=== PATIENT | male | born 1970 | race Caucasian/White ===

== ENCOUNTER 2019-09-03 09:58 | Day surgery (SDC) | payer BC ==
[2019-09-03] MEDS ORDERED: Propofol 200 MG/20 ML SDV IV ONE (09:59)
[2019-09-03] MEDS ORDERED: Midazolam 1 MG/ML 2 ML SDV IV ONE (09:59)
[2019-09-03] MEDS ORDERED: Lactated Ringers 1,000 ML IV SCH (10:00)
[2019-09-03] MEDS ORDERED: Sodium Chloride 0.9% 10 ML Syringe FLUSH PRN (10:00)
[2019-09-03] MEDS ORDERED: Propofol 200 MG/20 ML SDV ONE (10:43)
[2019-09-03] MEDS ORDERED: Midazolam 1 MG/ML 2 ML SDV ONE (10:43)
--- NOTE | 2019-09-03 11:41 | PCM.OPNOTE ---
- General Post-Op/Procedure Note Date of Surgery/Procedure: 09/03/19 Operative Procedure(s): Rectal bleeding. Colonoscopy. Findings: Moderately enlarged hemorrhoids noted at the anorectal junction. Pre Op Diagnosis: Rectal bleeding. Post-Op Diagnosis: Moderately enlarged hemorrhoids noted at the anorectal junction. Anesthesia Technique: MAC Primary Surgeon: Estrellita Rice Complications: None Condition: Good Free Text/Narrative:: INFORMED CONSENT: Patient is here today for elective colonoscopy. All aspects of this procedure have been discussed with the patient. All possible complications also, including possibility of perforation, infection, pain, bleeding and unknown complications. In the event of perforation patient may need to have abdominal exploration, colon resection, colostomy and even was discussed. Anesthetic complications were handled by anesthesia department. The patient understands fully well. Patient did not have any further questions for me at the end of my interview. The patient wishes for me to proceed. PREOPERATIVE DIAGNOSIS/INDICATIONS: [] POSTOPERATIVE DIAGNOSIS: [] INSTRUMENT USED: Olympus videocolonoscope. ASA CLASSIFICATION: [] ANESTHESIA: Continuous EKG, oximetry and intermittent blood pressure and respiratory monitoring were performed throughout the procedure. IV Versed and Fentanyl were administered. PROCEDURE PERFORMED: Colonoscopy POSITIONS OF PATIENT: Left lateral. RECTUM: Moderately enlarged internal and external hemorrhoids noted.. SIGMOID COLON: Normal. DESCENDING COLON: Normal. SPLENIC FLEXURE: Normal. TRANSVERSE COLON: Normal. HEPATIC FLEXURE: Normal. ASCENDING COLON: Normal. CECUM: Normal. ILEOCECAL VALVE: Normal. BIOPSY: None. TOLERANCE: Excellent. COMPLICATIONS: None.
== END 2019-09-03 13:30 | disposition home or self-care (01) ==
LOC: KA.SDS 09:58
PROVIDERS: ATTEND Family Medicine
DX: K64.8 Other hemorrhoids (principal); K64.4 Residual hemorrhoidal skin tags; F17.210 Nicotine dependence, cigarettes, uncomplicated; Z79.82 Long term (current) use of aspirin
CPT/HCPCS: J2250; J2704; J7120

== ENCOUNTER 2020-10-23 23:46 | Observation (INO) | payer BC, OTHER ==
[2020-10-23] MEDS ORDERED: Aspirin 81 MG Tab.Chew PO ONE (23:59)
[2020-10-24] MEDS ORDERED: Sodium Chloride 0.9% 10 ML Syringe FLUSH PRN (00:01)
--- NOTE | 2020-10-24 00:38 | EDM.PDOC ---
ED HPI GENERAL MEDICAL PROBLEM - General Chief Complaint: General Stated Complaint: pain, cough, chest tightness Time Seen by Provider: 10/23/20 23:55 Source of Information: Reports: Patient History Limitations: Reports: No Limitations - History of Present Illness INITIAL COMMENTS - FREE TEXT/NARRATIVE: 50-year-old male presents to the emergency room with complaints of chest pr essure. He began experiencing some chest pressure shortly after taking pain medication this evening. The onset of his symptoms occurred about 1030. He denied any radiation of his pain to his jaw or back, arm. No numbness tingling complaints. He did report feeling sweaty. He also reports having a cough. They did call the EMS and was brought here for further evaluation. He was given 1 nitro sublingual in route and reports that his chest pressure resolved. He has a history of atrial fibrillation diagnosed in May. His rate has been well controlled on Diltiazem 180 mg daily. Had a recent follow-up with cardiology for this on 10/17/2020. He is scheduled for 1 year follow-up for repeat EKG. Patient's had recent hemorrhoid surgery morning. His surgery was uneventful. Medical history significant for half-pack smoker 30+ years. He recently was prescribed Chantix and is going to try to quit smoking. Family history is significant for coronary artery disease and NM. His brother had a recent heart attack at the age of 42. Mother also has had a history of an NM and coronary artery disease COPD. Onset: Today Onset Date: 10/23/20 Onset Time: 22:30 Duration: Minutes:, Resolved Prior to Arrival Location: Reports: Chest Quality: Reports: Pressure Severity: Moderate Improves with: Reports: Medication (nitro) Worsens with: Reports: None Associated Symptoms: Reports: Cough, Diaphoresis. 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 Rectal Pain Score (Numeric/FACES): 9 Left Upper Chest Pain Score (Numeric/FACES): 3 - Related Data Allergies Allergy/AdvReac Type Severity Reaction Status Date / Time procaine [From Novocain] Allergy Tachycardia Verified 10/24/20 00:22 Home Meds: Home Meds Acetaminophen 325 mg PO ASDIRECTED PRN 08/31/19 [History] Docusate Sodium [Colace] 100 mg PO BID 10/24/20 [History] Multivit-Min/FA/Lycopen/Lutein [Centrum Silver Men Tablet] 1 each PO DAILY 10/24/20 [History] Varenicline Tartrate [Chantix] 0.5 mg PO BID 10/24/20 [History] Vitamin B Complex [B Complex] 1 each PO DAILY 10/24/20 [History] dilTIAZem HCL [Diltiazem ER] 180 mg PO DAILY 10/24/20 [History] oxyCODONE 5 mg PO Q4H PRN 10/24/20 [History] Past Medical History HEENT History: Reports: Impaired Vision Gastrointestinal History: Reports: Hemorrhoids Musculoskeletal History: Reports: Back Pain, Chronic - Infectious Disease History Infectious Disease History: Reports: None - Past Surgical History HEENT Surgical History: Reports: Other (See Below) Other HEENT Surgeries/Procedures: PUNCTURED EAR DRUM REPAIR GI Surgical History: Reports: Appendectomy, Hernia, Abdominal Social & Family History - Family History Family Medical History: No Pertinent Family History ED ROS GENERAL - Review of Systems Review Of Systems: See Below Constitutional: Reports: No Symptoms HEENT: Reports: No Symptoms Respiratory: Reports: Cough. Denies: Shortness of Breath, Wheezing Cardiovascular: Reports: Chest Pain (reports pressure). Denies: Blood Pressure Problem, Dyspnea on Exertion, Lightheadedness, Orthopnea, Palpitations Endocrine: Reports: No Symptoms GI/Abdominal: Reports: Bloody Stool (recent hemorrhoid surgery ) : Reports: No Symptoms Musculoskeletal: Reports: No Symptoms Skin: Reports: No Symptoms Neurological: Reports: No Symptoms Psychiatric: Reports: No Symptoms Hematologic/Lymphatic: Reports: No Symptoms Immunologic: Reports: No Symptoms ED EXAM, GENERAL - Physical Exam Exam: See Below Exam Limited By: No Limitations General Appearance: Alert, No Apparent Distress, Thin Eye Exam: Bilateral Eye: EOMI Ears: Hearing Grossly Normal Nose: Normal Inspection, Normal Mucosa, No Blood Throat/Mouth: Normal Inspection, Normal Lips, Normal Voice, No Airway Compromise Head: Atraumatic, Normocephalic Neck: Normal Inspection, Supple, Non-Tender, Full Range of Motion. No: Carotid Bruit, Lymphadenopathy (L), Lymphadenopathy (R), Tender Lateral, Tender Midline, Thyromegaly Respiratory/Chest: No Respiratory Distress, Lungs Clear, Normal Breath Sounds, No Accessory Muscle Use, Chest Non-Tender Cardiovascular: Normal Peripheral Pulses, Regular Rate, Rhythm, No Murmur Peripheral Pulses: 2+: Carotid (L), Carotid (R), Radial (L), Radial (R), Dorsalis Pedis (L), Dorsalis Pedis (R) GI/Abdominal: Normal Bowel Sounds, Soft, Non-Tender, No Organomegaly, No Distention, No Abnormal Bruit, No Mass Rectal (Males) Exam: Deferred (Surgery, hemorrhoids ) Back Exam: Normal Inspection, Full Range of Motion Extremities: Normal Inspection, Normal Range of Motion, Non-Tender, No Pedal Edema, Normal Capillary Refill Neurological: Alert, Oriented, CN II-XII Intact, Normal Cognition, No Motor/Sensory Deficits Psychiatric: Normal Affect, Normal Mood Skin Exam: Warm, Dry, Intact, Normal Color, No Rash Lymphatic: No Adenopathy #1 Interpretation EKG Date: 10/24/20 Time: 00:06 Rhythm: NSR Rate (Beats/Min): 92 [place]: RAD-Right [place] Deviation P-Wave: Present QRS: Normal ST-T: Normal QT: Normal Comparison: Change From Previous EKG EKG Interpretation Comments: Normal sinus rhythm Rightward axis Borderline ECG Course - Vital Signs Last Recorded V/S: Last Vital Signs Temp 99.1 F 10/24/20 00:08 Pulse 92 10/24/20 00:08 Resp 9 L 10/24/20 00:08 BP 132/79 10/24/20 00:08 Pulse Ox 96 10/24/20 00:08 - Orders/Labs/Meds Orders: Active Orders 24 hr Category Date Time Status Patient Status [ADT] Routine ADT 10/24/20 01:07 Active EKG Documentation Completion [RC] ASDIRECTED Care 10/23/20 23:59 Active Height and Weight [RC] UPON Care 10/24/20 01:06 Active Intake and Output [RC] QSHIFT Care 10/24/20 01:08 Active Oxygen Therapy [RC] PRN Care 10/24/20 01:08 Active Peripheral IV Care [RC] . DIRECTED Care 10/24/20 00:01 Active Pulse Oximetry [RC] PRN Care 10/24/20 01:08 Active Up With Assistance [RC] ASDIRECTED Care 10/24/20 01:06 Active Vital Signs [RC] Q4H Care 10/24/20 01:07 Active Regular Diet [DIET] Diet 10/24/20 Breakfast Active CXR [Chest 1V Frontal] [CR] Stat Exams 10/24/20 00:30 Ordered CORONAVIRUS COVID-19 RAPID [MOLEC] Stat Lab 10/24/20 01:10 Ordered TROPONIN I [CHEM] AM Lab 10/24/20 05:11 Ordered TROPONIN I [CHEM] Timed Lab 10/24/20 15:00 Ordered Acetaminophen [TylenoL] Med 10/24/20 01:06 Active 650 mg PO Q4H PRN Docusate Sodium [Colace] Med 10/24/20 09:00 Active 100 mg PO BID Docusate Sodium [Colace] Med 10/24/20 01:06 Active 200 mg PO DAILY PRN Multivit-Min/FA/Lycopen/Lutein [Centrum Silver Men Med 10/24/20 09:00 Active Tablet] 1 each PO DAILY Sodium Chloride 0.9% [Saline Flush] Med 10/24/20 00:01 Active 10 ml FLUSH Q8HR PRN Varenicline Tartrate [Chantix] Med 10/24/20 09:00 Active 0.5 mg PO BID Vitamin B Complex Med 10/24/20 09:00 Active 1 each PO DAILY dilTIAZem HCL [Diltiazem 24Hr ER] Med 10/24/20 09:00 Active 180 mg PO DAILY oxyCODONE Med 10/24/20 01:12 Active 5 mg PO Q4H PRN Peripheral IV Insertion Adult [OM.PC] Routine Oth 10/24/20 00:01 Ordered EKG 12 Lead [EK] Stat Ther 10/23/20 23:59 Ordered Labs: Laboratory Tests 10/24/20 10/24/20 Range/Units 00:10 00:10 WBC 9.43 (5.00-10.00) 10^3/uL RBC 4.34 L (4.50-6.00) 10^6/uL Hgb 13.8 (13.0-17.0) g/dL Hct 39.8 L (40.0-52.0) % MCV 91.7 (82.0-92.0) fL MCH 31.8 H (27.0-31.0) pg MCHC 34.7 (32.0-36.0) g/dL RDW 11.8 (11.5-14.5) % Plt Count 203 (150-400) 10^3/uL MPV 10.4 (7.4-10.4) fL Immature Gran % (Auto) 0.1 (0.0-5.0) % Neut % (Auto) 74.9 H (50.0-70.0) % Lymph % (Auto) 19.0 L (20.0-40.0) % [place] % (Auto) 5.3 (2.0-8.0) % Eos % (Auto) 0.5 L (1.0-3.0) % Baso % (Auto) 0.2 (0.0-1.0) % Neut # (Auto) 7.06 H (2.50-7.00) 10^3/uL Lymph # (Auto) 1.79 (1.00-4.00) 10^3/uL [place] # (Auto) 0.50 (0.10-0.80) 10^3/uL Eos # (Auto) 0.05 L (0.10-0.30) 10^3/uL Baso # (Auto) 0.02 (0.00-0.10) 10^3/uL Immature Gran # (Auto) 0.01 (0.00-0.50) 10^3/uL Sodium 137 (136-145) mmol/L Potassium 4.1 (3.5-5.1) mmol/L Chloride 102 (98-107) mmol/L Carbon Dioxide 26.2 (21.0-32.0) mmol/L Anion Gap 12.9 (5-15) mmol/L BUN 15 (7-18) mg/dL Creatinine 0.86 (0.51-1.17) mg/dL Est Cr Clr Drug Dosing TNP Estimated GFR (MDRD) > 60 mL/min Glucose 122 (70-140) mg/dL Calcium 8.7 (8.7-10.3) mg/dL Troponin I < 0.017 (0.000-0.056) ng/mL - Radiology Interpretation Free Text/Narrative:: CXR 1 view Portable Findings: Heart size is normal. There is no consolidation. No pleural effusions are seen. Impression: No acute abnormalities - Re-Assessments/Exams Free Text/Narrative Re-Assessment/Exam: 10/24/20 00:41 Patient was given 324 mg aspirin chewable upon arrival an EKG. Patient reports that his chest pressure was resolved with 1 nitro provided by the EMS in route to the emergency room. Departure - Departure Time of Disposition: 01:15 Disposition: Refer to Observation Condition: Good Clinical Impression: Chest pressure, Paroxysmal atrial fibrillation, Tobacco abuse, History of hemorrhoidectomy - Discharge Information Referrals: Annemarie Das, VENDING MACHINE ATTENDANT [Primary Care Provider] - Forms: ED Department Discharge Sepsis Event Note (ED) - Focused Exam Vital Signs: Vital Signs Temp Pulse Resp BP Pulse Ox 10/24/20 00:08 99.1 F 92 9 L 132/79 96 - My Orders Last 24 Hours: My Active Orders 10/23/20 23:59 EKG Documentation Completion [RC] ASDIRECTED EKG 12 Lead [EK] Stat 10/24/20 00:01 Peripheral IV Care [RC] . DIRECTED Sodium Chloride 0.9% [Saline Flush] 10 ml FLUSH Q8HR PRN Peripheral IV Insertion Adult [OM.PC] Routine 10/24/20 00:30 CXR [Chest 1V Frontal] [CR] Stat 10/24/20 01:06 Height and Weight [RC] UPON Up With Assistance [RC] ASDIRECTED Acetaminophen [TylenoL] 650 mg PO Q4H PRN Docusate Sodium [Colace] 200 mg PO DAILY PRN 10/24/20 01:07 Patient Status [ADT] Routine Vital Signs [RC] Q4H 10/24/20 01:08 Intake and Output [RC] QSHIFT Oxygen Therapy [RC] PRN Pulse Oximetry [RC] PRN 10/24/20 01:10 CORONAVIRUS COVID-19 RAPID [MOLEC] Stat 10/24/20 01:12 oxyCODONE 5 mg PO Q4H PRN 10/24/20 05:11 TROPONIN I [CHEM] AM 10/24/20 Breakfast Regular Diet [DIET] 10/24/20 09:00 Docusate Sodium [Colace] 100 mg PO BID Multivit-Min/FA/Lycopen/Lutein [Centrum Silver Men Tablet] 1 each PO DAILY Varenicline Tartrate [Chantix] 0.5 mg PO BID Vitamin B Complex 1 each PO DAILY dilTIAZem HCL [Diltiazem 24Hr ER] 180 mg PO DAILY 10/24/20 15:00 TROPONIN I [CHEM] Timed - Assessment/Plan Last 24 Hours: My Active Orders 10/23/20 23:59 EKG Documentation Completion [RC] ASDIRECTED EKG 12 Lead [EK] Stat 10/24/20 00:01 Peripheral IV Care [RC] . DIRECTED Sodium Chloride 0.9% [Saline Flush] 10 ml FLUSH Q8HR PRN Peripheral IV Insertion Adult [OM.PC] Routine 10/24/20 00:30 CXR [Chest 1V Frontal] [CR] Stat 10/24/20 01:06 Height and Weight [RC] UPON Up With Assistance [RC] ASDIRECTED Acetaminophen [TylenoL] 650 mg PO Q4H PRN Docusate Sodium [Colace] 200 mg PO DAILY PRN 10/24/20 01:07 Patient Status [ADT] Routine Vital Signs [RC] Q4H 10/24/20 01:08 Intake and Output [RC] QSHIFT Oxygen Therapy [RC] PRN Pulse Oximetry [RC] PRN 10/24/20 01:10 CORONAVIRUS COVID-19 RAPID [MOLEC] Stat 10/24/20 01:12 oxyCODONE 5 mg PO Q4H PRN 10/24/20 05:11 TROPONIN I [CHEM] AM 10/24/20 Breakfast Regular Diet [DIET] 10/24/20 09:00 Docusate Sodium [Colace] 100 mg PO BID Multivit-Min/FA/Lycopen/Lutein [Centrum Silver Men Tablet] 1 each PO DAILY Varenicline Tartrate [Chantix] 0.5 mg PO BID Vitamin B Complex 1 each PO DAILY dilTIAZem HCL [Diltiazem 24Hr ER] 180 mg PO DAILY 10/24/20 15:00 TROPONIN I [CHEM] Timed Assessment:: 1. Chest pressure, resolved with 1 sublingual nitro 2. Paroxysmal atrial fibrillation, rate controlled on Diltiazem 180 mg daily 3. Hemorrhoids status post hemorrhoidectomy 4. Tobacco abuse Plan: 1. Dean's lab work and EKG look unremarkable. He does have a strong family history of coronary artery disease. Recommend that we repeat his troponin in 2 hours and a.m. lab draw at [address] him in telemetry and observational status. I discussed this with the [place] provider gas combustion engineer.
[2020-10-24 00:40] LABS: ANION GAP 12.9 mmol/L (5-15); CHLORIDE,CL 102 mmol/L (98-107); SODIUM,NA 137 mmol/L (136-145)
[2020-10-24] MEDS ORDERED: Docusate Sodium 100 MG Cap PO PRN (01:06)
[2020-10-24] MEDS ORDERED: oxyCODONE 5 MG Tab PO PRN (01:12)
[2020-10-24] MEDS ORDERED: Nitroglycerin 0.4 MG Tab.SL SL PRN (02:00)
[2020-10-24] MEDS ORDERED: Atropine 0.1 MG/ML 10 ML Syringe IVPUSH PRN (02:00)
[2020-10-24] MEDS ORDERED: Lidocaine 2% 100 MG/5 ML Syringe IVPUSH PRN (02:00)
[2020-10-24] MEDS ORDERED: EPINEPHrine 1:10,000 1 MG/10 ML Syringe IVPUSH PRN (02:00)
[2020-10-24] MEDS ORDERED: Acetaminophen 325 MG Tab PO PRN (02:25)
[2020-10-24] MEDS ORDERED: DOCUSATE SODIUM 100 MG PO PRN (02:42)
[2020-10-24] MEDS ORDERED: OXYCODONE 5 MG PO PRN (02:45)
--- NOTE | 2020-10-24 08:01 | CR ---
[id number] RAD/RAD Chest Portable EXAM: RAD Chest Portable INDICATION: CHEST PRESSURE COMPARISON: None. DISCUSSION: Cardiomediastinal silhouette is normal in size and contour. No infiltrate, effusion, pneumothorax, or edema. IMPRESSION: No significant cardiopulmonary abnormality. Hernandez Haynes DO 10/24/20 0800 Thank you for allowing us to participate in the care of your patient.
[2020-10-24] MEDS: DOCUSATE SODIUM 100 MG PO SCH ×2 (08:39→20:12)
[2020-10-24] MEDS: Vitamin B Complex Tab PO SCH (08:40)
[2020-10-24] MEDS: [UNRECOGNIZED DRUG - OTHER] PO SCH (08:45)
[2020-10-24] MEDS: VARENICLINE TARTRATE PO SCH ×2 (08:45→20:14)
[2020-10-24] MEDS ORDERED: Sodium Chloride 0.9% 1,000 ML IV ONE (09:30)
[2020-10-24] MEDS ORDERED: Ondansetron 4 MG/2 ML SDV IVPUSH PRN (09:31)
[2020-10-24] MEDS ORDERED: Ketorolac 30 MG/ML SDV IVPUSH ONE (10:00)
--- NOTE | 2020-10-24 10:53 | PCM.HP.2 ---
H&P History of Present Illness - General Date of Service: 10/24/20 Admit Problem/Dx: Admission Diagnosis/Problem Admission Diagnosis/Problem Atypical chest pain Source of Information: Patient, Old Records, RN Rectal Pain Score (Numeric/FACES): 5 Left Upper Chest Pain Score (Numeric/FACES): 3 - Related Data Allergies/Adverse Reactions: Allergies Allergy/AdvReac Type Severity Reaction Status Date / Time procaine [From Novocain] Allergy Tachycardia Verified 10/24/20 00:22 Home Medications: Home Meds Docusate Sodium [Colace] 100 mg PO BID 10/24/20 [History] Multivit-Min/FA/Lycopen/Lutein [Centrum Silver Men Tablet] 1 each PO DAILY 10/24/20 [History] Varenicline Tartrate [Chantix] 0.5 mg PO BID 10/24/20 [History] Vitamin B Complex [B Complex] 1 each PO DAILY 10/24/20 [History] dilTIAZem HCL [Diltiazem 24Hr ER] 180 mg PO DAILY 10/24/20 [History] Acetaminophen 650 mg PO Q4HR PRN #0 10/25/20 [Rx] Past Medical History HEENT History: Reports: Impaired Vision Other HEENT History: wears glasses for reading Cardiovascular History: Reports: Afib Other Cardiovascular History: mom and brother have both had heart attacks Gastrointestinal History: Reports: Hemorrhoids Other Gastrointestinal History: hemorrhoidectomy: 10/23/20 Musculoskeletal History: Reports: Back Pain, Chronic - Infectious Disease History Infectious Disease History: Reports: None, Chicken Pox - Past Surgical History HEENT Surgical History: Reports: Other (See Below) Other HEENT Surgeries/Procedures: PUNCTURED EAR DRUM REPAIR GI Surgical History: Reports: Appendectomy, Hernia, Abdominal Social & Family History - Family History Family Medical History: No Pertinent Family History - Tobacco Use Tobacco Use Status *Q: Current Every Day Tobacco User Years of Tobacco use: 30 Packs/Tins Daily: 1 Tobacco Use Comment: Pt already has smoking cessation information - Caffeine Use Caffeine Use: Reports: Coffee Other Caffeine Use: 4 cups coffee/day - Recreational Drug Use Recreational Drug Use: No H&P Review of Systems - Review of Systems: Review Of Systems: See Below General: Reports: Diaphoresis HEENT: Reports: Other (Lightheadedness after taking oxycodone) Pulmonary: Reports: No Symptoms Cardiovascular: Reports: Lightheadedness. Denies: Orthopnea, PND, Edema, Syncope, Blood Pressure Problem Gastrointestinal: Reports: Nausea. Denies: Abdominal Pain, Constipation, Vomiting Genitourinary: Reports: No Symptoms Musculoskeletal: Reports: No Symptoms Skin: Reports: No Symptoms Neurological: Reports: Dizziness Hematologic/Lymphatic: Reports: No Symptoms Immunologic: Reports: No Symptoms Exam - Exam Exam: See Below - Vital Signs Vital Signs: Last Vital Signs Temp 97.6 F 10/24/20 06:49 Pulse 93 10/24/20 06:49 Resp 20 10/24/20 06:49 BP 101/67 10/24/20 06:49 Pulse Ox 97 10/24/20 06:49 Weight: 175 lb 8 oz - Exam Quality Assessment: No: Supplemental Oxygen General: Alert, Oriented, Mild Distress HEENT: Mucosa Moist & [place]. No: Glasses Neck: Supple Lungs: Clear to Auscultation, Normal Respiratory Effort Cardiovascular: Regular Rate, Regular Rhythm GI/Abdominal Exam: Soft. No: Distended, Rigid, Rebound Back Exam: No: CVA Tenderness (L), CVA Tenderness (R) Extremities: No Pedal Edema Peripheral Pulses: 1+: Radial (L), Radial (R) Skin: Moist, Other (Slight diaphoretic) Neuro Extensive - Mental Status: Alert, Oriented x3 Psychiatric: Alert, Anxious - Patient Data Lab Results Last 24 hrs: Laboratory Results - last 24 hr 10/24/20 10/24/20 10/24/20 Range/Units 00:10 00:10 01:10 WBC 9.43 (5.00-10.00) 10^3/uL RBC 4.34 L (4.50-6.00) 10^6/uL Hgb 13.8 (13.0-17.0) g/dL Hct 39.8 L (40.0-52.0) % MCV 91.7 (82.0-92.0) fL MCH 31.8 H (27.0-31.0) pg MCHC 34.7 (32.0-36.0) g/dL RDW 11.8 (11.5-14.5) % Plt Count 203 (150-400) 10^3/uL MPV 10.4 (7.4-10.4) fL Immature Gran % (Auto) 0.1 (0.0-5.0) % Neut % (Auto) 74.9 H (50.0-70.0) % Lymph % (Auto) 19.0 L (20.0-40.0) % [place] % (Auto) 5.3 (2.0-8.0) % Eos % (Auto) 0.5 L (1.0-3.0) % Baso % (Auto) 0.2 (0.0-1.0) % Neut # (Auto) 7.06 H (2.50-7.00) 10^3/uL Lymph # (Auto) 1.79 (1.00-4.00) 10^3/uL [place] # (Auto) 0.50 (0.10-0.80) 10^3/uL Eos # (Auto) 0.05 L (0.10-0.30) 10^3/uL Baso # (Auto) 0.02 (0.00-0.10) 10^3/uL Immature Gran # (Auto) 0.01 (0.00-0.50) 10^3/uL Sodium 137 (136-145) mmol/L Potassium 4.1 (3.5-5.1) mmol/L Chloride 102 (98-107) mmol/L Carbon Dioxide 26.2 (21.0-32.0) mmol/L Anion Gap 12.9 (5-15) mmol/L BUN 15 (7-18) mg/dL Creatinine 0.86 (0.51-1.17) mg/dL Est Cr Clr Drug Dosing TNP Estimated GFR (MDRD) > 60 mL/min Glucose 122 (70-140) mg/dL Calcium 8.7 (8.7-10.3) mg/dL Troponin I < 0.017 (0.000-0.056) ng/mL SARS CoV-2 RNA Rapid MARIELENA Negative (NEGATIVE) 10/24/20 10/24/20 Range/Units 02:00 07:10 WBC (5.00-10.00) 10^3/uL RBC (4.50-6.00) 10^6/uL Hgb (13.0-17.0) g/dL Hct (40.0-52.0) % MCV (82.0-92.0) fL MCH (27.0-31.0) pg MCHC (32.0-36.0) g/dL RDW (11.5-14.5) % Plt Count (150-400) 10^3/uL MPV (7.4-10.4) fL Immature Gran % (Auto) (0.0-5.0) % Neut % (Auto) (50.0-70.0) % Lymph % (Auto) (20.0-40.0) % [place] % (Auto) (2.0-8.0) % Eos % (Auto) (1.0-3.0) % Baso % (Auto) (0.0-1.0) % Neut # (Auto) (2.50-7.00) 10^3/uL Lymph # (Auto) (1.00-4.00) 10^3/uL [place] # (Auto) (0.10-0.80) 10^3/uL Eos # (Auto) (0.10-0.30) 10^3/uL Baso # (Auto) (0.00-0.10) 10^3/uL Immature Gran # (Auto) (0.00-0.50) 10^3/uL Sodium (136-145) mmol/L Potassium (3.5-5.1) mmol/L Chloride (98-107) mmol/L Carbon Dioxide (21.0-32.0) mmol/L Anion Gap (5-15) mmol/L BUN (7-18) mg/dL Creatinine (0.51-1.17) mg/dL Est Cr Clr Drug Dosing Estimated GFR (MDRD) mL/min Glucose (70-140) mg/dL Calcium (8.7-10.3) mg/dL Troponin I < 0.017 < 0.017 (0.000-0.056) ng/mL SARS CoV-2 RNA Rapid MARIELENA (NEGATIVE) Result Diagrams: 10/24/20 00:10 10/24/20 00:10 Sepsis Event Note - Evaluation Sepsis Screening Result: No Definite Risk - Focused Exam Vital Signs: Vital Signs Temp Pulse Pulse Resp BP Pulse Ox Pulse Ox 10/24/20 06:49 97.6 F 93 20 101/67 97 10/24/20 02:50 98.3 F 81 16 111/65 96 10/24/20 01:30 83 17 128/68 03/12/21 01:15 82 9 L 115/68 10/24/20 01:08 96 96 10/24/20 01:00 79 11 L 116/62 10/24/20 00:45 85 15 106/71 10/24/20 00:30 82 11 L 114/70 10/24/20 00:15 87 10 L 116/72 96 10/24/20 00:08 99.1 F 92 9 L 132/79 96 Problem List Initiated/Reviewed/Updated: Yes Orders Last 24hrs: Active Orders 24 hr Category Date Time Status Patient Status [ADT] Routine ADT 10/24/20 01:07 Active Intake and Output [RC] 1400,2200,0600 Care 10/24/20 01:08 Active Up With Assistance [RC] ASDIRECTED Care 10/24/20 01:06 Active Vital Signs [RC] 0300,0700,1100,1500,1900,2300 Care 10/24/20 01:07 Active Regular Diet [DIET] Diet 10/24/20 Breakfast Active Acetaminophen [TylenoL] Med 10/24/20 02:25 Active 325 mg PO ASDIRECTED PRN Acetaminophen [TylenoL] Med 10/24/20 01:06 Active 650 mg PO Q4H PRN Atropine [Atropine 0.1 MG/ML] Med 10/24/20 02:00 Active See Dose Instructions IVPUSH ASDIRECTED PRN Docusate Sodium [Colace] Med 10/24/20 09:00 Active 100 mg PO BID Docusate Sodium [Colace] Med 10/24/20 02:42 Active 200 mg PO DAILY PRN EPINEPHrine [EPINEPHrine 1:10,000] Med 10/24/20 02:00 Active 1 mg IVPUSH ASDIRECTED PRN Lidocaine 2% [Xylocaine 2%] Med 10/24/20 02:00 Active See Dose Instructions IVPUSH ASDIRECTED PRN Multivit-Min/FA/Lycopen/Lutein [Centrum Silver Men Med 10/24/20 09:00 Active Tablet] 1 each PO DAILY Nitroglycerin [Nitrostat] Med 10/24/20 02:00 Active 0.4 mg SL ASDIRECTED PRN Ondansetron [Zofran] Med 10/24/20 09:31 Active 4 mg IVPUSH Q6H PRN Sodium Chloride 0.9% [Saline Flush] Med 10/24/20 00:01 Active 10 ml FLUSH Q8HR PRN Varenicline Tartrate [Chantix] Med 10/24/20 09:00 Active 0.5 mg PO BID Vitamin B Complex Med 10/24/20 09:00 Active 1 each PO DAILY dilTIAZem HCL [Diltiazem 24Hr ER] Med 10/24/20 09:00 Active 180 mg PO DAILY oxyCODONE Med 10/24/20 02:45 Active 5 mg PO Q4H PRN Peripheral IV Insertion Adult [OM.PC] Routine Oth 10/24/20 00:01 Ordered EKG 12 Lead [EK] Stat Ther 10/23/20 23:59 Ordered Assessment/Plan Comment:: History of present illness Mr Avila 50-year-old gentleman that was 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 He presented to the ED complaining of nonradiating left-sided anterior chest pressure with someone accompany diaphoresis shortly after he took oxycodone. Upon ED arrival he was given 1 nitroglycerin in route and reports immediately chest pressure r esolution. PMHx significant for atrial fibrillation that was diagnosed May 2020 which she takes aspirin and diltiazem. Patient underwent hemorrhoid surgery under spinal anesthesia yesterday October 23 in [facility], simply get an oxycodone for pain control. PMX significant for a [id number] history smoker, currently attention to quit with recent Chantix, early heart disease in family His brother had a recent heart attack at the age of 42. Mother also has had a history of an IL and coronary artery disease and COPD. ED course/Pertinent ED workup/findings EKG, normal sinus rhythm with right axis deviation Chest x-ray, no acute process Initial troponin negative Electrolytes normal Primary hospital problems --Ruled out IL --Possible limited flow disease/CAD component --Dehydration --Recent hemorrhoid surgery, requiring improved pain management --Tobacco dependency, currently on Chantix, active phase of quitting Disposition/overall plan --Will continue observation as patient is is not quite optimal for discharge due to the need for improved pain management, changing medications to avoid side effects, IV fluid hydration. --DC oxycodone, due to patient intolerance --Changed to hydrocodone --IV fluid bolus 1000 mL --IV Zofran --Toradol 30 mg IV 1 now --Movantik, encourage oral hydration Possible discharge this p.m. if in improvement in nausea, pain control, no dizziness and hydration status is improved. - Mortality Measure Prognosis:: Good
[2020-10-24] MEDS: Acetaminophen 325 MG Tab PO PRN ×2 (16:02→21:53)
[2020-10-24] MEDS: Naloxegol Oxalate 25 MG Tab PO SCH (20:12)
[2020-10-25] MEDS: Acetaminophen 325 MG Tab PO PRN ×2 (02:38→08:26)
[2020-10-25] MEDS: DOCUSATE SODIUM 100 MG PO SCH (08:14)
[2020-10-25] MEDS: Naloxegol Oxalate 25 MG Tab PO SCH (08:15)
[2020-10-25] MEDS: Vitamin B Complex Tab PO SCH (08:15)
[2020-10-25] MEDS: [UNRECOGNIZED DRUG - OTHER] PO SCH (08:16)
[2020-10-25] MEDS: VARENICLINE TARTRATE PO SCH (08:16)
--- NOTE | 2020-10-25 10:25 | PCM.DCSUM1 ---
Discharge Summary - Hospital Course Free Text/Narrative:: Date of admission: 10/24/20 Date of discharge: 10/25/20 Admission diagnoses: # Chest pain # Dizziness # Hemorrhoids s/p hemorrhoidectomy 10/23/20 # Narcotic use postoperatively # Tobacco dependence, in early remission # Family history of premature coronary artery disease Discharge diagnoses: # Chest pain, resolved # Dizziness, resolved # Hemorrhoids s/p hemorrhoidectomy 10/23/20 # Narcotic use postoperatively # Tobacco dependence, in early remission # Family history of premature coronary artery disease Consultations: None Procedures: None Hospital course: Mr. Avila is a 50yoM with a history of paroxysmal atrial fibrillation and hemorrhoidectomy on the day prior to admission who presented to the [facility] ED just after midnight on 10/24/20 with [facility] complaint of chest pain. Onset of the chest pain occurred after he took oxycodone. Upon arrival in the ED, he was given nitroglycerin SL with resolution. EKG was without any acute changes and CXR without any abnormalities. CBC, BMP, and initial troponin all normal. He was admitted for observation for troponin trending and monitoring/management of symptoms. Troponin was negative x3 and telemetry without any concerns. Dizziness improved with IVF and discontinuation of oxycodone, for which dehydration and narcotic use in the setting of recent anesthesia and initiation of varenicline were likely contributing factors to his dizziness. Following negative troponin x3, he was given ketorolac 30mg IV x3 with control of pain. On the morning of d ischarge, he denied any recurrent chest pain and overall felt fairly well without any new concerns having arisen. Discharge and follow-up recommendations: - Discharge to home - Medication changes at discharge: Discontinue oxycodone, use acetaminophen and ibuprofen prn for pain - Encourage po fluid intake - Stool softeners as directed by general surgery s/p hemorrhoidectomy - Stress test as scheduled on 11/04/20 - Follow-up with PCP Annemarie Das APRN-CAROLEE, in 1-2 weeks - Discharge Data Discharge Date: 10/25/20 Discharge Disposition: Home, Self-Care 01 Condition: Good - Referral to Home Health Primary Care Physician: Annemarie Das NP - Patient Instructions Diet: Heart Healthy Diet, Drink 8-10+ Glasses/Day Activity: As Tolerated Showering/Bathing: May Shower Notify Provider of: Fever, Increased Pain, Nausea and/or Vomiting - Discharge Plan *PRESCRIPTION DRUG MONITORING PROGRAM REVIEWED*: Not Applicable *COPY OF PRESCRIPTION DRUG MONITORING REPORT IN PATIENT MARLEY: Not Applicable Home Medications: Home Meds Docusate Sodium [Colace] 100 mg PO BID 10/24/20 [History] Multivit-Min/FA/Lycopen/Lutein [Centrum Silver Men Tablet] 1 each PO DAILY 10/24/20 [History] Varenicline Tartrate [Chantix] 0.5 mg PO BID 10/24/20 [History] Vitamin B Complex [B Complex] 1 each PO DAILY 10/24/20 [History] dilTIAZem HCL [Diltiazem 24Hr ER] 180 mg PO DAILY 10/24/20 [History] Acetaminophen 650 mg PO Q4HR PRN #0 10/25/20 [Rx] Referrals: Annemarie Das, [employer] SUPERINTENDENT [Primary Care Provider] - (in 1-2 weeks) - Discharge Summary/Plan Comment DC Time >30 min.: Yes - General Info Subjective Update: Reports no recurrence of chest pain. Improved dizziness. Tolerating diet well. Voiding without difficulty. Not yet with bowel movement s/p hemorrhoidectomy. No new concerns. Feels ready for discharge. - Patient Data Vitals - Most Recent: Last Vital Signs Temp 35.7 C L 10/25/20 06:18 Pulse 88 10/25/20 06:18 Resp 16 10/25/20 06:18 BP 93/54 L 10/25/20 06:18 Pulse Ox 96 10/25/20 06:18 Weight - Most Recent: 79.605 kg I&O - Last 24 hours: Intake & Output 10/24/20 10/25/20 10/25/20 22:59 06:59 14:59 Intake Total 800 0 Balance 800 0 Med Orders - Current: Current Medications Acetaminophen (Acetaminophen 325 Mg Tab) 650 mg PO Q4H PRN PRN Reason: analgesia/fever Last Admin: 10/25/20 08:26 Dose: 650 mg Documented by: Atropine Sulfate (Atropine 0.1 Mg/Ml 10 Ml Syringe) 0 mg IVPUSH ASDIRECTED PRN PRN Reason: Heart. Docusate Sodium (Docusate Sodium 100 Mg CapOwn Med) 100 mg PO BID MASSIEL Last Admin: 10/25/20 08:14 Dose: 100 mg Documented by: Docusate Sodium (Docusate Sodium 100 Mg CapOwn Med) 200 mg PO DAILY PRN PRN Reason: Constipation Epinephrine HCl (Epinephrine 1:10,000 1 Mg/10 Ml Syringe) 1 mg IVPUSH ASDIRECTED PRN PRN Reason: Heart. Lidocaine HCl (Lidocaine 2% 100 Mg/5 Ml Syringe) 0 mg IVPUSH ASDIRECTED PRN PRN Reason: Heart. Naloxegol (Naloxegol Oxalate 25 Mg Tab) 25 mg PO DAILY [facility] Last Admin: 10/25/20 08:15 Dose: 25 mg Documented by: Nitroglycerin (Nitroglycerin 0.4 Mg Tab.Sl) 0.4 mg SL ASDIRECTED PRN PRN Reason: Heart. (Diltiazem Hcl [ Diltiazem 24hr Er] 180 Mg Cap.Sa.24h) *Pt Own Med 180 mg PO DAILY [facility] Last Admin: 10/25/20 08:15 Dose: 180 mg Documented by: Non-Formulary Medication (Multivit-Min/Fa/Lycopen/Lutein [Centrum Silver Men Tablet]) 1 each PO DAILY [facility] Last Admin: 10/25/20 08:16 Dose: Not Given Documented by: Non-Formulary Medication (Varenicline Tartrate [Chantix]) 0.5 mg PO BID [facility] Last Admin: 10/25/20 08:16 Dose: 0.5 mg Documented by: Ondansetron HCl (Ondansetron 4 Mg/2 Ml Sdv) 4 mg IVPUSH Q6H PRN PRN Reason: Nausea/Vomiting Last Admin: 10/24/20 09:52 Dose: 4 mg Documented by: Sodium Chloride (Sodium Chloride 0.9% 10 Ml Syringe) 10 ml FLUSH Q8HR PRN PRN Reason: keep vein open Vitamin B Complex (Vitamin B Complex Tab) 1 each PO DAILY [facility] Last Admin: 10/25/20 08:15 Dose: 1 each Documented by: Discontinued Medications Acetaminophen (Acetaminophen 325 Mg Tab) 325 mg PO ASDIRECTED PRN PRN Reason: Pain Aspirin (Aspirin 81 Mg Tab.Chew) 324 mg PO ONETIME ONE Stop: 10/24/20 00:00 Last Admin: 10/24/20 00:02 Dose: 324 mg Documented by: Docusate Sodium (Docusate Sodium 100 Mg Cap) 200 mg PO DAILY PRN PRN Reason: Constipation Sodium Chloride (Normal Saline) 1,000 mls @ 999 mls/hr IV .BOLUS ONE Stop: 10/24/20 10:30 Last Admin: 10/24/20 09:49 Dose: 999 mls/hr Documented by: Ketorolac Tromethamine (Ketorolac 30 Mg/Ml Sdv) 30 mg IVPUSH ONETIME ONE Stop: 10/24/20 10:01 Last Admin: 10/24/20 10:12 Dose: 30 mg Documented by: Oxycodone HCl (Oxycodone 5 Mg Tab) 5 mg PO Q4H PRN PRN Reason: Pain (severe 7-10) Last Admin: 10/24/20 01:39 Dose: 5 mg Documented by: Oxycodone HCl (Oxycodone 5 Mg TabOwn Med) 5 mg PO Q4H PRN PRN Reason: Pain (severe 7-10) Last Admin: 10/24/20 07:19 Dose: 5 mg Documented by: - Exam Physical Findings Comments:: GENERAL: Well-appearing adult white male sitting in bed in no acute distress. HEENT: Normocephalic, atraumatic. Conjunctiva clear. Nares patent without discharge. Mucous membranes moist. NECK: Supple, no masses. CV: Regular rate and rhythm, no murmurs, rubs, or gallops. 2+ radial pulses. PULMONARY: Normal effort, clear to auscultation bilaterally, no wheezes, rales, or rhonchi. ABDOMEN: Positive bowel sounds, soft, nontender, nondistended. EXTREMITIES: No edema, cyanosis, or clubbing. MUSCULOSKELETAL: Moves all extremities well. NEUROLOGICAL: No obvious deficits. DERMATOLOGIC: No rashes or suspicious lesions in exposed areas. PSYCHIATRIC: Alert, interactive, appropriate affect.
== END 2020-10-25 12:30 | disposition home or self-care (01) ==
LOC: KA.ED 23:46 → KA.MS 10-24 01:07 → UNDOADMOB 10-24 01:45 → KA.MS 10-24 01:45
PROVIDERS: ADMIT Physician Assistant; ATTEND Family Medicine
DX: I48.0 Paroxysmal atrial fibrillation (principal); R07.89 Other chest pain; E86.0 Dehydration; R61 Generalized hyperhidrosis; F17.210 Nicotine dependence, cigarettes, uncomplicated; F11.90 Opioid use, unspecified, uncomplicated; Z20.822 Contact with and (suspected) exposure to COVID-19; Z88.8 Allergy status to other drugs, medicaments and biological substances; Z79.82 Long term (current) use of aspirin; Z79.899 Other long term (current) drug therapy; Z82.49 Family history of ischemic heart disease and other diseases of the circulatory system; Z98.890 Other specified postprocedural states
CPT/HCPCS: 36415; 71045; 80048; 84484; 85025; 93005; 96374; 96375; 99220; 99285-25; A9270-GY; G0378; J1885; J2405; J7030; U0002